=== PATIENT | male | born 1980 | race Two or more races ===

== ENCOUNTER 2018-11-18 14:06 | Emergency (ER) | payer BC, OTHER ==
[~2018-11-18] VITALS: Ht 177.8 cm; Wt 110.0 kg
--- NOTE | 2018-11-18 14:40 | NUR ---
FIRST CONTACT WITH PT. Pt has steady gait and balance from restroom to ED room. Pt states, "for a couple of days I have been feeling light headed and short of breath, and feeling like I am going to pass out. My mom's side of the family has had heart attacks and stents placed. Pt denies cp, n/v/d. Pt states, "I feel cold all of the sudden, very anxious, like I am going to pass out,." Pt connected to NIBP, continous pulse ox, and ekg monitor tech. call light within reach. All safety measures in place.
[2018-11-18 15:17] LABS: BASOPHILS # (AUTO) 0.02 x10^3/uL (0-0.1); BASOPHILS % (AUTO) 0 % (0-1); EOSINOPHILS # (AUTO) 0.22 x10^3/uL (0-0.4); EOSINOPHILS % (AUTO) 3 % (1-7); LYMPHOCYTES # (AUTO) 2.55 x10^3/uL (1-3.4); LYMPHOCYTES % (AUTO) 36 % (22-44); MD NO; MEAN CORPUSCULAR HEMOGLOBIN 30.7 pg (27.5-34.5); MEAN CORPUSCULAR VOLUME 90.3 fL (81-97); MEAN PLATELET VOLUME 9.2 fL (7.4-10.4); MONOCYTES % (AUTO) 4 % (2-9); NEUTROPHILS # (AUTO) 4.04 x10^3/uL (1.8-6.8); NEUTROPHILS % (AUTO) 57 % (42-75); PLATELET COUNT 215 x10^3/uL (130-400); RED BLOOD COUNT 5.11 x10^6/uL (4.38-5.82); RED CELL DISTRIBUTION WIDTH 12.9 % (9.4-14.8)
[2018-11-18 15:29] LABS: ALANINE AMINOTRANSFERASE 60 U/L (12-78); ALBUMIN 4.4 g/dL (3.4-5.0); ANION GAP 6 mmol/L (5-15); CALCIUM 9.1 mg/dL (8.5-10.1); CHLORIDE 111 mmol/L (98-107); CREATININE 1.03 mg/dL (0.7-1.3)
[2018-11-18 15:33] LABS: ALKALINE PHOSPHATASE 54 U/L (45-117); BILIRUBIN,TOTAL 0.6 mg/dL (0.2-1.0); TOTAL PROTEIN 7.8 g/dL (6.4-8.2); TROPONIN I < 0.015 ng/mL (0.000-0.045)
--- NOTE | 2018-11-18 18:32 | NUR ---
Patient given discharge instructions and they have confirmed that they understand the instructions. Patient ambulatory with steady gait. Pt left with discharge paperwork and all personal belongings.
[2018-11-18 18:33] VITALS: BP 126/88
== END 2018-11-18 18:35 | disposition home or self-care (01) ==
LOC: ED 15:53
DX: R55 Syncope and collapse (principal); R00.2 Palpitations; I10 Essential (primary) hypertension
CPT/HCPCS: 36415; 71046; 80053; 83880; 84484; 85025; 93005; 99284